=== PATIENT | female | born 1990 | race Caucasian/White ===

== ENCOUNTER 2023-06-22 09:31 | Emergency (ER) | payer SELFPAY ==
--- OUTSIDE RECORDS SUMMARY | 2023-06-22 09:34 | XMS REPORT | Continuity of Care Document ---
:1990 Author Organization [facility] t Address [address] [place] [address] Care Team Providers Name Role Phone PCP, PATIENT DOES NOT HAVE A Primary Care Physician Unavaila LILLIAM Gutierrez Attending Clinician Unavailable Lilliam Chilel DO Attending Clinician Payers Payer Name Policy Type Policy Number Effective Date Expiration Date S [facility] MEDICAID PENDING PENDING 2022 00:00:00 Problems Condition Condition Condition Status Onset Resolution Last Treating Co mments Source Name Details Category Date Date Treatment Clinician Date No known No known Disease Unive rs active active ity of problems problems [facility] Allergies, Adverse Reactions, Alerts Allergy Allergy Status Severity Reaction(s) Onset Inactive Treating Comm ents Source Name Type Date Date Clinician NO KNOWN Drug Active Univers ALLERGIE Class ity of S [facility] Social History Social Habit Start Date Stop Date Quantity Comments Source Gender identity [facility] Sexual orientation Method [facility] Exposure to 2022-02-20 2022-03-02 Not sure [facility] SARS-CoV-2 (event) 00:00:00 09:39:00 [facility] Branch History of Social 2018-09-14 2018-09-14 [facility] function 00:00:00 00:00:00 Sex Ass[birth year] At [birth year] [facility] 00:00:00 00:00:00 Smoking Status Start Date Stop Date Source Tobacco smoking consumption unknown [facility] Medications Ordered Filled Start Stop Current Ordering Indication Dosage Frequency Signature Comments Components Source Medication Medication Date Date Medication? Clinician (SIG) Name Name famotidine 2021- No 20mg 20 mg, Univ ers (PEPCID AC) 03-02 Oral, ity of tablet 20 15:45: 14:59 [place]CE[place] :00 dose, On Medical 03/02/22 Branch at 1045, PATRICIA diphenhydrA 2021- No 25mg 25 mg, Uni vers MINE 03-02 Oral, ity of (BENADRYL) 15:45: 14:58 ONCE, 1 [place] as tablet 25 00 :00 dose, On Medica l mg 03/02/22 Branch at 1045, PATRICIA predniSONE 2021- No 50mg 50 mg, [facility] ers (DELTASONE) 03-02 Oral, ity of tablet 50 15:45: 14:58 ONCE, [place] mg 00 :00 dose, On Medical 03/02/22 Branch at 1045, PATRICIA traMADOL Yes 50mg Take 1 Tab Uni vers (ULTRAM) 50 9-24 by mouth ity of mg tablet 00:00: every 6 [place] 00 (six) Medical hours as Branch needed for Pain (scale 4-6). proMETHazin Yes 25mg Take 1 Tab Univers e 9-24 by mouth ity of (PHENERGAN) 00:00: every 6 [place] as 25 mg 00 (six) Medical tablet hours as Branch needed for Nausea and Vomiting (N/V). phenazopyri 2014-0 Yes 200mg Take 1 Tab Univers dine 9-24 by mouth 3 ity of (PYRIDIUM) 00:00: (three) [place] 200 mg 00 times Medical tablet daily. Branch Vital Signs Vital Name Observation Time Observation Value Comments Source Systolic blood 2022-03-02 14:39:00 142 mm[facility]Hg[facility] Diastolic blood 2022-03-02 14:39:00 100 mm[Hg] [facility] rsity of pressure [facility] Heart rate 2022-03-02 14:39:00 126 /min [facility] Body temperature 2022-03-02 14:39:00 36.5 [place] [facility] Respiratory rate 2022-03-02 14:39:00 20 /min [facility] Body height 2022-03-02 14:39:00 157.5 cm [facility] Body weight 2022-03-02 14:39:00 51.71 kg [facility] BMI 2022-03-02 14:39:00 20.85 kg/m2 [facility] Oxygen saturation in 2022-03-02 14:39:00 100 /min [facility] Arterial blood by [facility] Pulse oximetry [place] Procedures Procedure Date / Time Performed Performing Clinician Laura e NOTICE OF PRIVACY 2022-03-02 14:32:41 Doctor Unassigned, No Univ [facility] PRACTICES Name [facility] Plan of Care Planned Activity Planned Date Details Comments Source Future Scheduled 2023-06-21 COVID-[facility]ACCINE [facility] 02:04:43 (#1) [code = COVID-19 VACCINE (#1)] Future Scheduled 2023-06-21 Screening for [facility] Test 02:04:43 malignant neoplasm of cervix (procedure) [code = 425529746] Future Scheduled 2023-06-21 INFLUENZA VACCINE [facility] Test 02:04:43 (#1) [code = INFLUENZA VACCINE (#1)] Encounters Start End Encounter Admission Attending Care Care Encounter Source Date/Time Date/Time Type Type Clinicians Facility Department ID 2022-03-02 2022-03-02 Emergency X KEILA COSVETA ERT [id number] Univers 09:42:00 11:10:00 LILLIAM jenkins [facility] 2022-03-02 2022-03-02 Emergency Keila [facility] [id number] Univers 09:42:00 11:10:00 [facility]illi[id number] [id number] [facility] [id number] [place] [id number] Branch 2021-02-08 2021-02-08 Outpatient PRIV PRIV [id number] 3-2 [facility] 04:38:00 04:38:00 [id number] Medica l Results This patient has no known results.
[2023-06-22] MEDS ORDERED: FAMOTIDINE 20 MG/2 ML VIAL IV ONE (09:58)
[2023-06-22] MEDS ORDERED: NA CHLORIDE 0.9% 1,000 ML ONE (09:58)
[2023-06-22] MEDS ORDERED: ONDANSETRON 4 MG/2 ML VIAL ONE (09:58)
[2023-06-22] MEDS ORDERED: METHYLPREDNISOLONE 125 MG INJ ONE (09:58)
[2023-06-22] MEDS ORDERED: DIPHENHYDRAMINE 50 MG/ML VIAL ONE (09:58)
[2023-06-22 11:05] LABS: Transitional Epithelial <5 /HPF (None Seen); Urine Bacteria None Seen /HPF (<20); Urine Bilirubin NEGATIVE (Negative); Urine Blood Negative (Negative); Urine Clarity Extremely Turbid (Clear); Urine Color Colorless (Yellow); Urine Glucose NEGATIVE (Negative); Urine Protein NEGATIVE (Negative); Urine RBC <5 /HPF (None Seen); Urine Urobilinogen Normal (Normal)
--- NOTE | 2023-06-22 11:18 | EDPHYS ---
Physician Documentation [facility] Name: Marilia Gonzales Age: 32 yrs Sex: Female : 1990 Arrival Date: 06/22/2023 Time: 09:31 Bed 14 Private MD: ED Physician Declan Plata HPI: 06/22 09:45 This 32 yrs old Female presents to ER via EMS with complaints of Insect Bite. cp 09:45 The patient was bitten on the right wrist and left lower abdomen, by possible spider, cp at home. 09:45 Onset: The symptoms/episode began/occurred this morning. Associated signs and symptoms: cp Pertinent positives: erythema at site, tightness of throat, Pertinent negatives: fever. Severity of symptoms: in the emergency department the symptoms are unchanged, despite EMS interventions. 11:00 Patient reports "black " spider was seen at house. 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 - Social history:: Smoking status: Patient reports the use of cigarette tobacco products, smokes one-half pack cigarettes per day. ROS: 09:50 Constitutional: Negative for body aches, chills, fever, poor PO intake. cp 09:50 Eyes: Negative for injury, pain, redness, and discharge. cp 09:50 Respiratory: Positive for shortness of breath, at rest. Negative for cough. cp 09:50 ENT: Positive for throat tightness, Negative for sore throat, difficulty swallowing, cp difficulty handling secretions. 09:50 Cardiovascular: Negative for chest pain. 09:50 Abdomen/GI: Negative for abdominal pain, vomiting, diarrhea, constipation. 09:50 : Negative for urinary symptoms. 09:50 Skin: Positive for possible "spider" bites. 09:50 Neuro: Negative for altered mental status, dizziness, headache, weakness. 09:50 All other systems are negative. Exam: 10:00 Head/Face: Normocephalic, atraumatic. cp 10:00 Constitutional: The patient appears in no acute distress, alert, awake, non-toxic, well developed, well nourished. 10:00 Eyes: Periorbital structures: appear normal, Pupils: equal, round, and reactive to light and accomodation, Extraocular movements: intact throughout, Conjunctiva: normal, no exudate, no injection, Lids and lashes: appear normal, bilaterally. 10:00 ENT: External ear(s): are unremarkable, Nose: is normal, Mouth: Lips: moist, Oral mucosa: pink and intact, moist, Posterior pharynx: is normal, airway is patent, no erythema, no exudate. 10:00 Neck: ROM/movement: is normal, is supple, without pain, no range of motions limitations. 10:00 Chest/axilla: Inspection: normal. 10:00 Cardiovascular: Rate: normal, Rhythm: regular, Edema: is not appreciated, JVD: is not appreciated. 10:00 Respiratory: the patient does not display signs of respiratory distress, Respirations: normal, no use of accessory muscles, no retractions, labored breathing, is not present, Breath sounds: are clear throughout, no decreased breath sounds, no stridor, no wheezing. 10:00 Abdomen/GI: Inspection: abdomen appears normal, Palpation: abdomen is soft and non-tender, in all quadrants. 10:00 Skin: cellulitis, is not appreciated, rash a mild rash is noted, rash can be described as erythematous, papular, on the volar side of right wrist and left lower abdomen. Vital Signs: 09:37 BP 154 / 89; Pulse 68; Resp 18; Temp 98.5; Pulse Ox 100% on R/A; Weight 54.43 kg; ph Height 5 ft. 3 in. ; 11:43 BP 128 / 78; Pulse 67; Resp 18; Temp 97.9; Pulse Ox 99% on R/A; ph 09:37 Body Mass Index 21.26 (54.43 kg, 160.02 cm) ph MDM: 09:39 Patient medically screened. cp 11:17 Data reviewed: vital signs, nurses notes, and as a result, I will discharge patient. cp 11:17 Differential diagnosis: allergic reaction, anaphylaxis. Counseling: I had a detailed cp discussion with the patient and/or guardian regarding the historical points, exam findings, and any diagnostic results supporting the discharge/admit diagnosis, to return to the emergency department if symptoms worsen or persist or if there are any questions or concerns that arise at home. Response to treatment: the patient's symptoms have markedly improved after treatment, and as a result, I will discharge patient. 06/22 09:40 Order name: PREGU; Complete Time: 11:10 cp 06/22 11:00 Order name: Urinalysis w/ reflexes; Complete Time: 11:10 EDMS Administered Medications: 09:54 Drug: Ondansetron IVP 4 mg Route: IVP; Site: left antecubital; ph 11:44 Follow up: Response: No adverse reaction ph 09:54 Drug: MethylPrednisoLONE IVP 125 mg Route: IVP; Site: left antecubital; ph 11:44 Follow up: Response: No adverse reaction ph 09:54 Drug: Famotidine IVP 20 mg Route: IVP; Site: left antecubital; ph 11:44 Follow up: Response: No adverse reaction ph 09:54 Drug: NS 0.9% IV 1000 ml Route: IV; Rate: 1000 ml/hr; Site: left antecubital; ph 11:43 Follow up: Response: No adverse reaction; IV Status: Completed infusion; IV Intake: ph 1000ml 11:16 Drug: diphenhydrAMINE IVP 25 mg Route: IVP; Site: left antecubital; ph 11:44 Follow up: Response: No adverse reaction ph Disposition Summary: 06/22/23 11:18 Discharge Ordered Location: Home cp Problem: new cp Symptoms: have improved cp Condition: Stable cp Diagnosis - Insect bite (nonvenomous) of abdominal wall - left cp - Insect bite (nonvenomous) of right forearm cp - Insect allergy status cp Followup: cp - With: Private Physician - When: 2 - 3 days - Reason: Recheck today's complaints Discharge Instructions: - Discharge Summary Sheet cp - Insect Bite, Adult cp Forms: - Medication Reconciliation Form cp - Thank You Letter cp - Antibiotic Education cp - Prescription Opioid Use cp - Patient Portal Instructions cp - Leadership Thank You Letter cp Prescriptions: - Pepcid 20 mg Oral Tablet - take 1 tablet by ORAL route every 12 hours for 5 days; 10 tablet; Refills: 0, cp Product Selection Permitted - Prednisone 20 mg Oral Tablet - take 2 tablets by ORAL route once daily for 5 days; 10 tablet; Refills: 0, cp Product Selection Permitted Signatures: Dispatcher [employer] Sharon Rodriguez RN RN ph Declan York PA PA cp Corrections: (The following items were deleted from the chart) 11:00 09:41 Urine Microscopic+U.LAB.BRZ ordered. EDMS EDMS
--- NOTE | 2023-06-22 11:18 | ER ---
Nurse's Notes [facility] Name: Marilia Gonzales Age: 32 yrs Sex: Female : 1990 Arrival Date: 06/22/2023 Time: 09:31 Bed 14 Private MD: Diagnosis: Insect bite (nonvenomous) of abdominal wall-left;Insect bite (nonvenomous) of right forearm;Insect allergy status Presentation: 06/22 09:37 Chief complaint: EMS states: Woke up feeling like she had been bitten by something on ph her R wrist and L hip, small reddened areas noted, 25 mg Benadryl given. Coronavirus screen: Vaccine status: Patient reports being unvaccinated. Ebola Screen: No symptoms or risks identified at this time. Initial Sepsis Screen: Does the patient meet any 2 criteria? No. Patient's initial sepsis screen is negative. Does the patient have a suspected source of infection? No. Patient's initial sepsis screen is negative. Risk Assessment: Do you want to hurt yourself or someone else? Patient reports no desire to harm self or others. Onset of symptoms was June 22, 2023. 09:37 Method Of Arrival: EMS: [facility] ph 09:37 Acuity: MARGARITA 4 ph Triage Assessment: 09:40 Bite description: bite sustained to right wrist by an unknown animal, animal ph information: vaccination(s) is unknown. Bite description: bite sustained to left iliac crest by an unknown animal, animal information: vaccination(s) is unknown. General: Appears in no apparent distress. Behavior is cooperative, appropriate for age. Pain: Complains of pain in RIGHT WRIST AND LEFT HIP. Neuro: Level of Consciousness is awake, alert, obeys commands, Oriented to person, place, time, situation. Cardiovascular: Capillary refill < 3 seconds in bilateral fingers Patient's skin is warm and dry. Respiratory: Airway is patent Respiratory effort is even, unlabored. Musculoskeletal: Circulation, motion, and sensation intact. Range of motion: intact in all extremities. 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 - Social history:: Smoking status: Patient reports the use of cigarette tobacco products, smokes one-half pack cigarettes per day. Screenin:41 [facility] ED Fall Risk Assessment (Adult) History of falling in the last 3 months, ph including since admission No falls in past 3 months (0 pts) Confusion or Disorientation No (0 pts) Intoxicated or Sedated No (0 pts) Impaired Gait No (0 pts) Mobility Assist Device Used No (0 pt) Altered Elimination No (0 pt) Score/Fall Risk Level 0 - 2 = Low Risk Oriented to surroundings, Maintained a safe environment, Hourly rounding (assess needs \T\ fall precautionary measures) done. Abuse screen: Denies threats or abuse. Denies injuries from another. Nutritional screening: No deficits noted. Tuberculosis screening: No symptoms or risk factors identified. Assessment: 09:54 General: SEE TRIAGE ASSESSMENT. ph Vital Signs: 09:37 BP 154 / 89; Pulse 68; Resp 18; Temp 98.5; Pulse Ox 100% on R/A; Weight 54.43 kg; ph Height 5 ft. 3 in. ; 11:43 BP 128 / 78; Pulse 67; Resp 18; Temp 97.9; Pulse Ox 99% on R/A; ph 09:37 Body Mass Index 21.26 (54.43 kg, 160.02 cm) ph ED Course: 09:37 Patient arrived in ED. ph 09:38 Declan York PA is PHCP. cp 09:39 Declan Plata MD is Attending Physician. cp 09:39 Triage completed. ph 09:41 Arm band placed on Patient placed in an exam room, on a stretcher. ph 09:42 Sharon Weiss RN is Primary Nurse. ph 09:42 Patient has correct armband on for positive identification. Bed in low position. Call ph light in reach. Side rails up X2. 09:54 Maintain EMS IV. Dressing intact. Good blood return noted. Site clean \T\ dry. Gauge \T\ ph site: 20 LAC. 11:17 No provider procedures requiring assistance completed. ph 11:43 IV discontinued, intact, bleeding controlled, No redness/swelling at site. Pressure ph dressing applied. Administered Medications: 09:54 Drug: Ondansetron IVP 4 mg Route: IVP; Site: left antecubital; ph 11:44 Follow up: Response: No adverse reaction ph 09:54 Drug: MethylPrednisoLONE IVP 125 mg Route: IVP; Site: left antecubital; ph 11:44 Follow up: Response: No adverse reaction ph 09:54 Drug: Famotidine IVP 20 mg Route: IVP; Site: left antecubital; ph 11:44 Follow up: Response: No adverse reaction ph 09:54 Drug: NS 0.9% IV 1000 ml Route: IV; Rate: 1000 ml/hr; Site: left antecubital; ph 11:43 Follow up: Response: No adverse reaction; IV Status: Completed infusion; IV Intake: ph 1000ml 11:16 Drug: diphenhydrAMINE IVP 25 mg Route: IVP; Site: left antecubital; ph 11:44 Follow up: Response: No adverse reaction ph Medication: 09:42 VIS not applicable for this client. ph Intake: 11:43 IV: 1000ml; Total: 1000ml. ph Outcome: 11:18 Discharge ordered by MD. cp 11:42 Discharged to home ambulatory. ph 11:42 Condition: good 11:42 Discharge instructions given to patient, Instructed on discharge instructions, follow up and referral plans. medication usage, Demonstrated understanding of instructions, follow-up care, medications, Prescriptions given X 2. 11:44 Patient left the ED. ph 12:06 Patient left the ED. ph Signatures: Sharon Weiss RN RN ph Declan York PA PA cp
[2023-06-22 12:19] VITALS: BP 128/78; TEMP 97.9; O2SAT 99
== END 2023-06-22 12:06 | disposition home or self-care (01) ==
LOC: ER 09:31
DX: S30.861A Insect bite (nonvenomous) of abdominal wall, initial encounter (principal); S50.861A Insect bite (nonvenomous) of right forearm, initial encounter; Z91.038 Other insect allergy status
CPT/HCPCS: 81001; 81025; 96361; 96374; 96375; 99284; J1200; J2405; J2930; J7030